=== PATIENT | female | born 1970 | race African-American/Black ===

== ENCOUNTER 2024-01-19 23:13 | Emergency (ER) | payer MEDICARE, MEDICAID ==
[~2024-01-19] VITALS: Ht 170.2 cm; Wt 81.5 kg
[2024-01-19 23:57] VITALS: TEMP 97.3; O2SAT 99
[2024-01-20 00:40] LABS: CLARITY URINE CLEAR (CLEAR); COLOR URINE YELLOW (YELLOW); GLUCOSE URINE NEGATIVE (NEGATIVE); KETONES URINE NEGATIVE (NEGATIVE); LEUKOCYTE ESTERASE URINE 2+ (NEGATIVE); NITRITE URINE NEGATIVE (NEGATIVE); OCCULT BLOOD URINE NEGATIVE (NEGATIVE); PROTEIN URINE NEGATIVE (NEGATIVE); SPECIFIC GRAVITY URINE 1.023 (1.005-1.030); UROBILINOGEN URINE 0.2 E.U./dL (0.2-1.0)
[2024-01-20 01:09] LABS: SQUAMOUS EPITHELIAL CELL URINE FEW /lpf (RARE/1+)
[2024-01-20 01:14] LABS: RBC URINE 0-2 /hpf (0-2)
[2024-01-20 01:15] LABS: BACTERIA URINE 1+
[2024-01-20 01:45] VITALS: BP 139/88; PULSE 83; RESP 15
[2024-01-20] MEDS: KETOROLAC 60MG/2ML VIAL IM ONE (01:45)
[2024-01-20] MEDS ORDERED: NAPR-679 MT (01:51)
[2024-01-20] MEDS ORDERED: CYCL5TAB MT (01:51)
[2024-01-20] MEDS ORDERED: ACET-2708 MT (01:51)
[2024-01-20] MEDS ORDERED: NITR100C MT (01:51)
[2024-01-20] MEDS ORDERED: SULF1TAB48 MT (02:35)
== END 2024-01-20 04:29 | disposition home or self-care (01) ==
LOC: ER 23:13
DX: S39.012A Strain of muscle, fascia and tendon of lower back, initial encounter (principal); N39.0 Urinary tract infection, site not specified; Z98.890 Other specified postprocedural states; Z79.899 Other long term (current) drug therapy; V49.49XA Driver injured in collision with other motor vehicles in traffic accident, initial encounter; Y93.89 Activity, other specified; Y92.89 Other specified places as the place of occurrence of the external cause; Y99.8 Other external cause status
CPT/HCPCS: 99284; 81003; 72100; 96372; J1885

== ENCOUNTER → 2025-08-26 | Outpatient (CLI) | payer MEDICARE, MEDICAID ==
[~2025-08-26] MED LIST: ACET-2708 MT; CYCL5TAB3 MT; NAPR-679 MT; SULF1TAB48 MT
== END | disposition home or self-care (01) ==
LOC: CT 09:57
PROVIDERS: ATTEND Internal Medicine Critical Care Medicine
DX: R91.8 Other nonspecific abnormal finding of lung field (principal); R06.02 Shortness of breath; E04.9 Nontoxic goiter, unspecified
CPT/HCPCS: 71250